=== PATIENT | female | born 1970 | race Caucasian/White ===

== ENCOUNTER 2021-07-10 01:19 | Inpatient (IN) | payer OTHER ==
[~2021-07-10] VITALS: Ht 157.5 cm; Wt 74.8 kg
[~2021-07-10 01:19] MED LIST: CLARITIN5 MG/5 ML PO; COLACE100 MG PO; FEOSOL325 MG PO; IBUPROFEN600 MG PO; NORCO 5-325 TA1 EACH PO
[2021-07-10 01:57] LABS: HEMOGLOBIN 15.7 gm/dl (12.3-15.3); RED BLOOD COUNT 5.22 M/UL (4.00-5.10); WHITE BLOOD COUNT 4.8 K/UL (4.5-11.0)
[2021-07-10 02:19] LABS: BUN/CREATININE RATIO 27 (0-10)
[2021-07-10] MEDS ORDERED: FAMOTIDINE20 MG PO (13:00)
[2021-07-10] MEDS ORDERED: GLUCOTROL5 MG PO (13:01)
[2021-07-10] MEDS ORDERED: COZAAR 50MG TAB50 MG PO (13:02)
[2021-07-10] MEDS ORDERED: VITAMIN D350 MC3 PO (13:05)
[2021-07-11 07:48] LABS: HEMOGLOBIN 14.7 gm/dl (12.3-15.3); RED BLOOD COUNT 5.15 M/UL (4.00-5.10)
[2021-07-11 08:13] LABS: HBSAG SCREEN Negative (Negative); HEP A AB, IGM Negative (Negative); HEP B CORE AB, IGM Negative (Negative); HEP C VIRUS AB <0.1 (0.0-0.9)
[2021-07-11 08:15] LABS: BUN/CREATININE RATIO 29 (0-10)
[2021-07-12 06:18] LABS: HEMOGLOBIN 13.3 gm/dl (12.3-15.3)
[2021-07-12 06:20] LABS: RED BLOOD COUNT 4.5 M/UL (4.00-5.10); WHITE BLOOD COUNT 5.1 K/UL (4.5-11.0)
[2021-07-12 06:36] LABS: BUN/CREATININE RATIO 25 (0-10)
[2021-07-13 08:07] LABS: BUN/CREATININE RATIO 28 (0-10)
[2021-07-14 07:55] LABS: BUN/CREATININE RATIO 27 (0-10)
[2021-07-14] MEDS ORDERED: DECADRON6 MG PO (13:07)
[2021-07-14] MEDS ORDERED: LANTUS100 UNIT/1 SQ (13:10)
== END 2021-07-14 15:02 | disposition home or self-care (01) | DRG 177 ==
LOC: ER1 01:19 → CDU 04:37 → M/S 16:37
PROVIDERS: Internal Medicine; Physician Assistant; ADMIT Emergency Medicine
PROC: XW033E5 Introduction of Remdesivir Anti-infective into Peripheral Vein, Percutaneous Approach, New Technology Group 5 (ICD-10-PCS; principal; 2021-07-10)
PROC: 3E0333Z Introduction of Anti-inflammatory into Peripheral Vein, Percutaneous Approach (ICD-10-PCS; 2021-07-10)
PROC: 8E0ZXY6 Isolation (ICD-10-PCS; 2021-07-10)
DX: U07.1 COVID-19 (principal); J12.82 Pneumonia due to coronavirus disease 2019; J96.01 Acute respiratory failure with hypoxia; E87.1 Hypo-osmolality and hyponatremia; E87.2 Acidosis; E11.9 Type 2 diabetes mellitus without complications; I10 Essential (primary) hypertension; G60.0 Hereditary motor and sensory neuropathy; Z98.890 Other specified postprocedural states; Z88.8 Allergy status to other drugs, medicaments and biological substances; D72.819 Decreased white blood cell count, unspecified; G43.909 Migraine, unspecified, not intractable, without status migrainosus
CPT/HCPCS: 36415; 36600; 71045; 71275; 80048; 80053; 80074; 82550; 82553; 82803; 82962; 83605; 83690; 83735; 83874; 84484; 85025; 85027; 85379; 87040; 93005; 94640; 94664; 94760; 99284; J0248; J0456; J0696; J1100; J1650; J7030; Q9967; U0002